=== PATIENT | female | born 1970 | race Caucasian/White ===

== ENCOUNTER 2023-04-13 11:35 | Emergency (ER) | payer MEDICAID, SELFPAY ==
[2023-04-13] VITALS (7 sets, daily range): BP systolic 119–132; BP diastolic 60–79; PULSE 57–74; RESP 15–22; TEMP 36.6–37.1; O2SAT 97–99; BMI 39.1
--- NOTE | ~2023-04-13 | CT_ITS ---
EXAMINATION: CT ANGIOGRAM OF THE CHEST WITH CONTRAST (CT PULMONARY ANGIOGRAM FOR PE) CLINICAL INFORMATION: Reason for Exam Left-sided pleuritic pain, rule out PE versus pneumonia COMPARISON: Chest radiograph from 04/13/2023 TECHNIQUE: Prior to contrast administration, noncontrast localization images were obtained. Subsequently, multidetector volumetric imaging was performed from the thoracic inlet to below the diaphragms following the administration of 65 mL Omnipaque 350 intravenous contrast. No contrast reaction reported. Sagittal, coronal, and MIP oblique sagittal reformatted images were obtained on the CT workstation, uploaded to PACS, and reviewed. This CT examination was performed using dose optimization techniques as appropriate, variously including the following: *Automated exposure control *Adjustment of mA and/or kV according to patient size (this includes techniques or standardized protocols for targeted exams where dose is matched to indication/reason for exam; i.e. extremities or head) *Use of iterative reconstruction technique DLP: Total exam dose-length product 309 mGy-cm FINDINGS: LUNGS AND PLEURA: Lungs have mosaic attenuation. Bronchial gongora are diffusely thickened. Mild pulmonary emphysematous changes. No evidence of interstitial disease, consolidation, mass or pleural effusion. No pneumothorax. QUALITY OF STUDY/CONTRAST BOLUS: Satisfactory. PULMONARY ARTERIES: The pulmonary arteries are normal in size. No embolic filling defects within the main, lobar or segmental vessels. OTHER CARDIOVASCULAR: The heart size is normal. No pericardial effusion. Thoracic aorta has normal caliber and contour. MEDIASTINUM/LOWER NECK: No mediastinal mass. The thyroid gland and esophagus are unremarkable. LYMPHATICS: No pathologic sized axillary, hilar or mediastinal lymph nodes. UPPER ABDOMEN: A small amount of contrast material is present within the proximal stomach. No acute findings within the visualized portion of the upper abdomen. The patient has a large body habitus. OSSEOUS STRUCTURES: No acute or suspicious osseous abnormality. Mild spondylosis of the thoracic spine. CT/CT angio chest PE protocol IMPRESSION: * No evidence of pulmonary embolism. * Lungs have mosaic attenuation and bronchial gongora are thickened. This could be a manifestation of asthma or bronchitis. * No evidence of pneumonia.
--- NOTE | ~2023-04-13 | XR_ITS ---
EXAMINATION: XR CHEST CLINICAL INFORMATION: Woke up Tuesday with shortness of breath, cough, and extreme tiredness. COMPARISON: None available. TECHNIQUE: 2 views of the chest were obtained. FINDINGS: Moderate degenerative changes in the thoracic spine. No gross pleural effusion. There is no gross pneumothorax. Heart size is normal. No focal consolidation to suggest pneumonia. Mild prominence of the left hilum. Moderate bilateral perihilar peribronchial thickening. XR/XR chest 2V IMPRESSION: 1. Moderate bilateral perihilar peribronchial thickening. No focal consolidation to suggest pneumonia. 2. Mild prominence of the left hilum. 2. CT scan of the chest without intravenous contrast recommended for further evaluation. This study was presented today April 13, 2023 at 12:50 PM for interpretation. Stat results provided at this time as requested by referring provider.
--- NOTE | 2023-04-13 12:04 | ED.GENADULT ---
HPI - General Adult General Chief complaint: Upper Respiratory Symptoms Stated complaint: Back pain, congestion, vomiting Time Seen by Provider: 04/13/23 15:44 Source: patient Mode of arrival: ambulatory Limitations: no limitations History of Present Illness HPI narrative: 52-year-old female with no significant past medical history presents emergency department for evaluation of sudden onset of left posterior pleuritic pain which started on 04/11/2022 2 days prior to evaluation. 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 She states she fell back asleep but then when she woke up to go to work she felt ill. She states she had intermittent fevers on and off for 2 days. She had nasal congestion. She has had a cough which is productive of black, dark phlegm with no blood in the phlegm. She states that she initially had nausea, vomiting and diarrhea for 2 days but this resolved. She states she feels extremely fatigued, she has dyspnea on exertion and shortness of breath. She took a home COVID test which was negative. She denied any pain or swelling in her legs. She has had no recent travel. She has not on control pills or estrogen supplements. 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 She denies tobacco, alcohol use. Related Data Previous Rx's Medication Instructions Recorded albuterol sulfate 90 mcg/actuation 2 puff inhalation Q4-6H PRN 04/13/23 aerosol inhaler (ProAir HFA) shortness of breath or wheezing #6.7 grams doxycycline hyclate 100 mg tablet 100 mg PO Q12H 7 days #14 tabs 04/13/23 prednisone 20 mg tablet 60 mg (3 x 20 mg) PO DAILY 5 days 04/13/23 #15 tabs Allergies Allergy/AdvReac Type Severity Reaction Status Date / Time Latex, Natural Rubber Allergy Intermediate Hives Verified 04/13/23 12:04 Review of Systems Review of Systems: Yes all other systems are reviewed and are negative [facility] Social History Social History Alcohol intake: former Smoked in Last 30 Days: No Use of substances other than those prescribed or required for medical reasons: Yes Substance Use Type: Marijuana Advance Directives: No Physical Exam ED Vital Signs: Vital Signs - 24 hr 04/13/23 12:04 04/13/23 12:21 04/13/23 14:02 Temperature 97.9 F 97.8 F Pulse Rate 57 61 74 Respiratory Rate 18 22 H 18 Blood Pressure 127/79 132/74 Pulse Oximetry 97 97 Oxygen Delivery Method Room Air Room Air 04/13/23 16:28 04/13/23 18:17 04/13/23 18:44 Temperature 98.2 F 98.7 F 98.2 F Pulse Rate 60 67 63 Respiratory Rate 15 16 16 Blood Pressure 127/67 125/60 119/65 Pulse Oximetry 97 97 97 Oxygen Delivery Method Room Air Room Air Room Air BMI result Body Mass Index 39.1 Vital signs were normal Exam: General: Awake, alert in no distress Head: Normocephalic, atraumatic EENT: PERRL, Lids normal, sclera normal, conjunctiva normal, nose normal , ears normal, throat without erythema or exudates Neck: Supple, no adenopathy, no trachea midline or C-spine tenderness Lung: breath sounds symmetric, no wheezing, rales or rhonchi Chest: symmetric movement, nontender Heart: regular rate and rhythm, normal S1, S2 no murmurs or rubs Abdomen: soft, non-tender, nondistended, normal bowel sounds Back: no vertebral tenderness, no CVAT Extremities: no deformities, moves all extremities symmetrically, lower extremities appear to be symmetric with no edema or erythema Neuro: Awake, alert, oriented, normal speech, moves all extremities symmetrically Psych: Pleasant, cooperative Course Course Course Narrative: RME: 52 year-old F w/ PMHx presenting to the ED c/o back pain 1 week ago which is now resolved, now with ear pain, congestion, cough, SOB and fatigue +exp wheeze, coarse cough Viral testing, CXR ordered Full HPI, ROS and PE to be performed by primary ED provider. Medications Administered Discontinued Medications Generic Name Dose Route Start Last Admin Trade Name Freq PRN Reason Stop Dose Admin Albuterol Sulfate 2.5 mg/ 0 mg 04/13/23 12:17 04/13/23 12:20 Albuterol/Ipratropium 3 ml INHALE 04/13/23 12:18 1 dose ONCE ONE Administration Doxycycline Monohydrate 100 mg 04/13/23 19:14 04/13/23 19:42 Doxycycline Monohydrate 100 Mg Capsule PO 04/13/23 19:15 100 mg ONCE ONE Administration Sodium Chloride 1,000 mls @ 999 mls/hr 04/13/23 16:03 04/13/23 17:50 Ns IV 04/13/23 17:03 Infused .Q1H1M STA Infusion Iohexol 100 ml 04/13/23 17:20 04/13/23 17:21 Iohexol 350 Mg/Ml 100 Ml Infus..Btl IV 04/13/23 17:21 65 ml ONCE ONE Administration Ketorolac Tromethamine 15 mg 04/13/23 16:03 04/13/23 16:30 Ketorolac Tromethamine 15 Mg/Ml Vial IVPUSH 04/13/23 16:04 15 mg ONCE STA Administration Prednisone 40 mg 04/13/23 19:14 04/13/23 19:41 Prednisone 20 Mg Tablet PO 04/13/23 19:15 40 mg ONCE ONE Administration Procedures Ear Wax Removal Both Ears: Cerumenolytic Used: other (50% water with 50% hydrogen peroxide) Results: Re-examined: cerumen removed completely TM Examination: TM(s) intact, normal appearance Ear Canal Exam: atraumatic Patient Tolerated Procedure: well Complications: no problems Technique: ear canal irrigated Medical Decision Making Medical Decision Making MDM Narrative: 52-year-old female with no past medical history who presents emergency department for evaluation of sudden onset of left-sided pleuritic chest pain 2 days prior with cough which is productive of thick black sputum. The patient had fever, nausea, vomiting and diarrhea for 2 days. She currently complains of productive cough, nasal congestion, left-sided pleuritic chest pain which is improved, fatigue, myalgias and arthralgias. Vital signs were normal. Physical examination was unremarkable, patient did have wheezing at triage and did receive a albuterol nebulizer mixed with DuoNeb x1 and had no wheezing at the time of my evaluation. Following evaluation was ordered: CBC, CMP, D-dimer, PTT, troponin, CT pulmonary angiogram PE protocol, chest x-ray, IV insertion, front desk monitor, pulse ox monitor Patient was treated with the following: Normal saline x1 L and Toradol 15 mg IV 18:49 My interpretation patient's laboratory evaluation as follows: CBC was normal with a WBC of 7400 H&H of 14 and 40.2. D-dimer was normal. CMP was normal. Troponin was below detectable limits. COVID-19 influenza were negative Chest x-ray was concerning for possible left sided infiltrate. CT pulmonary angiogram PE protocol revealed no PE which is reassuring, patient may have diffuse bronchial illness Patient treated with doxycycline 100 mg b.i.d. x7 days, given her 1st dose here in the emergency department. Prednisone 60 mg daily x5 days, given her 1st dose here in the emergency department. She was prescribed an albuterol inhaler 2 puffs every 4 hours as needed for shortness of breath. She was given printed and verbal instructions and a work note. Differential Diagnosis Differential Diagnoses: The differential diagnosis associated with the presentation includes Differential diagnosis includes was not limited to pneumonia, bronchitis, viral syndrome, COVID-19, influenza, RSV, pulmonary embolism, pneumothorax Admission/Observation Consideration of admission/observation: Escalation of care including admission/observation considered Lab Data MDM Lab Attestation statement: I reviewed the patient's lab results. 04/13/23 16:18 04/13/23 16:18 Labs: Lab Results 04/13/23 04/13/23 Range/Units 12:12 16:18 WBC 7.4 (4.8-10.8) X10*3/uL RBC 4.30 (4.20-5.50) X10*6/uL Hgb 14.0 (12.0-16.0) g/dl Hct 40.2 (37.0-47.0) % MCV 93.5 (80.0-98.0) fL MCH 32.6 (27.0-33.0) pg MCHC 34.8 (31.0-35.0) g/dl RDW 13.0 (11.0-16.0) % Plt Count 223 (160-400) X10*3/uL MPV 9.8 (9.4-12.3) fL Immature Gran % (Auto) 0.5 H (0.0-0.4) % Neut % (Auto) 62.6 (45-73) % Lymph % (Auto) 28.2 (20-40) % [place] % (Auto) 7.6 (2-11) % Eos % (Auto) 0.7 (0-4) % Baso % (Auto) 0.4 (0-2) % Lymph # (Auto) 2.1 (1.2-4.9) X10*3/uL [place] # (Auto) 0.6 (0.1-1.2) X10*3/uL Eos # (Auto) 0.1 (0.0-0.4) X10*3/uL Baso # (Auto) 0.0 (0.0-0.2) X10*3/uL Abs Immat Gran (auto) 0.04 H (0.00-0.03) X10*3/uL Absolute Neuts (auto) 4.6 (2.0-8.3) x10*3/uL Absolute Nucleated RBC 0.000 (0.0-0.012) X10*3/uL Nucleated RBC % (auto) 0.0 (0.0-0.2) /100WBC APTT 25.0 L (26.0-36.4) SEC D-Dimer High Sensitivty < 150 NG/ML Sodium 141 (135-145) mmol/L Potassium 3.4 (3.3-5.1) mmol/L Chloride 106 (96-108) mmol/L Carbon Dioxide 28 (22-29) mmol/L Anion Gap 10 L (12-20) BUN 10 (9-16) mg/dL Creatinine 0.65 (0.5-1.4) mg/dL Estim Creat Clear Calc 112.9 Estimated GFR > 60 Random Glucose 102 (60-115) mg/dL Calcium 9.0 (8.4-10.2) mg/dL Total Bilirubin 0.4 (0.0-1.0) mg/dL AST 11 (5-31) U/L ALT 12 (0-31) U/L Alkaline Phosphatase 69 (39-117) U/L Troponin I High Sens < 2.7 (<3.5-17.0) ng/L Total Protein 7.0 (6.5-8.0) g/dL Albumin 3.9 (3.5-5.0) g/dL COVID-19 (JAIR) Negative (Negative) COVID-19 Clin Com See Note Influenza Type A (TAO) Negative (Negative) Influenza Type B (TAO) Negative (Negative) Influenza A & B Note See Note Independent Interpretation I performed an independent interpretation of an: Plain X-Ray Interpretation: My independent interpretation with the patient's one-view chest x-ray is as follows: Left perihilar infiltrate Radiology Impression Discussion of test interpretation with radiology: I have reviewed the radiologist's reading. Radiologist Impression: XR chest 2V IMPRESSION: 1. Moderate bilateral perihilar peribronchial thickening. No focal consolidation to suggest pneumonia. 2. Mild prominence of the left hilum. 2. CT scan of the chest without intravenous contrast recommended for further evaluation. This study was presented today April 13, 2023 at 12:50 PM for interpretation. Stat results provided at this time as requested by referring provider. Dictated By: Priya Pleitez MD CT angio chest PE protocol IMPRESSION: * No evidence of pulmonary embolism. * Lungs have mosaic attenuation and bronchial gongora are thickened. This could be a manifestation of asthma or bronchitis. * No evidence of pneumonia. Dictated By: Dennis Baptiste MD Independent Historian Clinical information obtained from an independent historian. History obtained from or confirmed by: Other (Friend) Prescription Management I considered prescription management with: Antibiotic Discharge Plan Discharge Clinical Impression: Chest pain, pleuritic, Bilateral impacted cerumen Acute bronchitis Qualifiers: Bronchitis organism: other organism Qualified Code(s): J20.8 - Acute bronchitis due to other specified organisms Patient Disposition: Home, Self-Care Instructions: Acute Bronchitis (ED) Additional Instructions: Your blood work was unremarkable Your COVID-19 and influenza were negative. Your chest x-ray was concerning for possible left-sided pneumonia however the CT scan of your chest with IV contrast revealed no pneumonia but you do have significant inflammation of your breathing tubes, this is consistent with bronchitis. Take doxycycline 100 mg, 1 pill every 12 hours for 7 days Take prednisone 20 mg pills, 3 pills once a day for 5 days. While you ?are taking prednisone, do not take any NSAIDs (Motrin, Advil, ibuprofen, Aleve, naproxen). Take Tylenol (acetaminophen) 500 mg pills, 2 pills every 6 hours as needed for pain or fever. Follow-up with your doctor in 2 days. Please return to the emergency department if your symptoms get worse or if you develop any symptoms that are concerning to you. Please see the work note. Prescriptions: New prednisone 20 mg tablet 60 mg PO DAILY 5 Days Qty: 15 0RF albuterol sulfate [ProAir HFA] 90 mcg/actuation HFA aerosol inhaler 2 puff inhalation Q4-6H PRN (Reason: shortness of breath or wheezing) Qty: 6.7 0RF doxycycline hyclate 100 mg tablet 100 mg PO Q12H 7 Days Qty: 14 0RF Stand Alone Forms: Work/School Release
[2023-04-13] MEDS: Albuterol Sulfate 2.5 MG, Albuterol/Iprat 2.5/0.5MG 3 ML 3 ML INHALE (12:20)
[2023-04-13 12:36] LABS: COVID-19 Test Negative (Negative); IDNOW Serial# 58CA691E
[2023-04-13 12:37] LABS: IDNOW Serial# 6674DD1D; Influenza A Negative (Negative); Influenza B2 Negative (Negative)
--- NOTE | 2023-04-13 16:04 | ECG_ITS ---
Test Reason : UPPER RESP Blood Pressure : / mmHG Vent. Rate : 059 BPM Atrial Rate : 059 BPM P-R Int : 170 ms QRS Dur : 084 ms QT Int : 444 ms P-R-T Axes : 019 -19 -17 degrees QTc Int : 439 ms Sinus bradycardia Nonspecific T wave abnormality Abnormal ECG No previous ECGs available Referred By: Devendra Benito Electronically Signed By:Sabino Tamez
[2023-04-13 16:22] LABS: MANUAL DIFF FLAG NO
[2023-04-13] MEDS: 0.9 % Sodium Chloride 1,000 ML 999 ML IV (16:22)
[2023-04-13 16:30] LABS: Basophils Percent Auto 0.4 % (0-2); Eosinophils Absolute Auto 0.1 X10*3/uL (0.0-0.4); Eosinophils Percent Auto 0.7 % (0-4); Hematocrit 40.2 % (37.0-47.0); Imm Gran Abs Auto 0.04 X10*3/uL (0.00-0.03); Imm Gran Pct Auto 0.5 % (0.0-0.4); Lymphocytes Absolute Auto 2.1 X10*3/uL (1.2-4.9); Lymphocytes Percent Auto 28.2 % (20-40); Mean Corpuscular HGB Conc 34.8 g/dl (31.0-35.0); Mean Corpuscular Hemoglobin 32.6 pg (27.0-33.0); Mean Corpuscular Volume 93.5 fL (80.0-98.0); Mean Platelet Volume 9.8 fL (9.4-12.3); Monocytes Absolute Auto 0.6 X10*3/uL (0.1-1.2); Monocytes Percent Auto 7.6 % (2-11); Neutrophils Absolute Auto 4.6 x10*3/uL (2.0-8.3); Neutrophils Percent Auto 62.6 % (45-73); Platelet Count 223 X10*3/uL (160-400); White Blood Count 7.4 X10*3/uL (4.8-10.8)
[2023-04-13] MEDS: Ketorolac Tromethamine 15 MG/ML VIAL IVPUSH (16:30)
[2023-04-13 16:43] LABS: Alanine Aminotransferase 12 U/L (0-31); Albumin Level 3.9 g/dL (3.5-5.0); Alkaline Phosphatase 69 U/L (39-117); Anion Gap 10 (12-20); Aspartate Amino Transferase 11 U/L (5-31); Bilirubin Total 0.4 mg/dL (0.0-1.0); Blood Urea Nitrogen 10 mg/dL (9-16); Carbon Dioxide 28 mmol/L (22-29); Chloride 106 mmol/L (96-108); Creatinine Clr Calc Pharmacy 112.9; Estimated Glomerular Filt Rate > 60; Glucose Random 102 mg/dL (60-115); Potassium 3.4 mmol/L (3.3-5.1); Sodium 141 mmol/L (135-145)
[2023-04-13 16:51] LABS: Troponin-I High Sensitivity < 2.7 ng/L (<3.5-17.0)
[2023-04-13 17:21] LABS: D Dimer High Sensitivity < 150 NG/ML
[2023-04-13] MEDS: iohexoL 350 MG/ML 100 ML INFUS..BTL IV (17:21)
--- NOTE | 2023-04-13 17:53 | PC.NURSE ---
Alert and oriented, reports not feeling well since tuesday. Labs drawn, medicated per may, reports feeling better. Son at bedside
[2023-04-13] MEDS: predniSONE 20 MG TABLET 40 MG PO (19:41)
[2023-04-13] MEDS: Doxycycline Monohydrate 100 MG CAPSULE PO (19:42)
--- NOTE | 2023-04-13 19:45 | PC.NURSE ---
Assumed care of pt at 19:00. Resting in bed, VS stable. Plan of care ongoing.
--- NOTE | 2023-04-13 20:43 | PC.NURSE ---
Both ears flushed per MD verbal order with 50/50 hydrogen peroxide and warm H2O. Round 2cm size brown ball of wax extracted from both ears.
== END 2023-04-13 20:54 | disposition home or self-care (01) ==
PROVIDERS: Physician Assistant; Emergency Provider Emergency Medicine Emergency Medical Services
DX: R07.89 Other chest pain (principal); J20.8 Acute bronchitis due to other specified organisms; H61.23 Impacted cerumen, bilateral; Z11.52 Encounter for screening for COVID-19
CPT/HCPCS: 36415; 69209; 71046; 71275; 80053; 84484; 85025; 85379; 85730; 87502; 87635; 93005; 94640; 96361; 96374; 99284; 99285; J1885; Q9967

== ENCOUNTER → 2023-04-13 16:04 | Outpatient (BNV) | payer MEDICAID, SELFPAY | PROVIDERS: Emergency Provider Emergency Medicine Emergency Medical Services; Visit Provider Internal Medicine Cardiovascular Disease | DX: R00.1 Bradycardia, unspecified (principal); R94.31 Abnormal electrocardiogram [ECG] [EKG] | CPT/HCPCS: 93010 ==

== ENCOUNTER 2023-04-20 18:25 | Emergency (ER) | payer MEDICAID, SELFPAY ==
--- NOTE | ~2023-04-20 | XR_ITS ---
EXAMINATION: XR CHEST CLINICAL INFORMATION: Bronchitis COMPARISON: None available. TECHNIQUE: Frontal view of the chest was obtained. FINDINGS: No significant abnormality is noted involving the heart, lungs, mediastinum, bony thorax or soft tissues. XR/XR chest 1V IMPRESSION: Unremarkable chest examination.
[2023-04-20 19:26] VITALS: BP 103/62; PULSE 67; RESP 18; TEMP 36.9; O2SAT 95; BMI 37.7
--- NOTE | 2023-04-20 19:37 | ED_ITS ---
HPI - General Adult General Chief complaint: General Medical Stated complaint: bronchitis, abd pain Time Seen by Provider: 04/21/23 01:30 Source: patient Mode of arrival: ambulatory History of Present Illness HPI narrative: 52-year-old female, prior smoker, presents with persistent cough and feeling unwell since last week, patient reports she has been taking her prednisone/albuterol and antibiotics as prescribed. Patient also reports right lower abdominal discomfort. Related Data Previous Rx's Medication Instructions Recorded albuterol sulfate 90 mcg/actuation 2 puff inhalation Q4-6H PRN 04/13/23 aerosol inhaler (ProAir HFA) shortness of breath or wheezing #6.7 grams doxycycline hyclate 100 mg tablet 100 mg PO Q12H 7 days #14 tabs 04/13/23 prednisone 20 mg tablet 60 mg (3 x 20 mg) PO DAILY 5 days 04/13/23 #15 tabs Allergies Allergy/AdvReac Type Severity Reaction Status Date / Time Latex, Natural Rubber Allergy Intermediate Hives Verified 04/20/23 19:26 Review of Systems 2 Review of Systems: Pertinent positives and negatives as stated in HPI [facility] Past Medical History Source: nursing notes reviewed Social History Social History Alcohol intake: former Smoked in Last 30 Days: No Use of substances other than those prescribed or required for medical reasons: No Substance Use Type: Marijuana Advance Directives: No Advance Directives Information Provided: Yes Patient : No Physical Exam ED Vital Signs: Vital Signs - 24 hr 04/20/23 19:26 04/21/23 00:26 04/21/23 01:47 Temperature 98.5 F 97.7 F 98.2 F Pulse Rate 67 64 60 Respiratory Rate 18 18 18 Blood Pressure 103/62 127/98 H 106/59 L Pulse Oximetry 95 95 93 Oxygen Delivery Method Room Air Room Air Room Air 04/21/23 02:04 Temperature 98.1 F Pulse Rate 61 Respiratory Rate 14 Blood Pressure 116/65 Pulse Oximetry 95 Oxygen Delivery Method Room Air BMI result Body Mass Index 37.7 VITAL SIGNS: Reviewed. GENERAL: Well developed, well nourished, in no acute distress. HEAD: Normocephalic/atraumatic EYES: PERRLA, EOMI EARS: Ext canals without abnormality NOSE: Nares patent bilateral OROPHARYNX: no oral lesions noted, posterior pharynx clear NECK: Supple, no adenopathy LUNGS: Good inspiratory effort, coarse rhonchi that clear with cough, no tachypnea. SpO2<95> CARDIOVASCULAR: Regular rate and rhythm without noted murmurs ABDOMEN: Soft, non-tender, non-distended with bowel sounds. MUSCULOSKELETAL: No tenderness, deformities, or effusions noted on gross inspection. EXTREMITIES: No cyanosis, clubbing or edema. SKIN: Inspection of the skin reveals no rashes NEUROLOGIC: Alert and oriented x 4. Strength and sensation to light touch were grossly intact x 4. Course Course Course Narrative: RME: 52 yold female presents to the ED for URI sympomts for one week and now has lower abdominal pain. patient denies any chest pain or SOB. Medications Administered Discontinued Medications Generic Name Dose Route Start Last Admin Trade Name Freq PRN Reason Stop Dose Admin Acetaminophen 975 mg 04/21/23 01:35 04/21/23 02:06 Acetaminophen 325 Mg Tablet PO 04/21/23 01:36 975 mg ONCE ONE Administration Ibuprofen 400 mg 04/21/23 01:35 04/21/23 02:06 Ibuprofen 400 Mg Tablet PO 04/21/23 01:36 400 mg ONCE ONE Administration Medical Decision Making Medical Decision Making MDM Narrative: 52-year-old female with history and clinical presentation, DDX: UTI, musculoskeletal pain, viral syndrome, COVID-19 versus influenza, low clinical suspicion for intra-abdominal infection or bacterial pneumonia. I reviewed all investigations and hematologic indices are grossly within normal limits without any noted derangements. Chemistry indices without demonstrated SAVAGE/electrolyte or liver enzyme derangements. Lipase is within normal limits. Urine is negative and urinalysis does demonstrate blood, viral testing is positive for influenza A. Suspect that patient is out of the window for initiating Tamiflu, this was discussed with the patient at bedside. Patient was also given combination analgesics. My interpretation is that patient has a viral syndrome with cough that is likely contributing to musculoskeletal pain in the abdomen is noted be influenza A positive. Differential Diagnosis Differential Diagnoses: The differential diagnosis associated with the presentation includes Please see the discussion above Admission/Observation Consideration of admission/observation: Escalation of care including admission/observation considered Please see the discussion above Lab Data MDM Lab Attestation statement: I reviewed the patient's lab results. Please see the discussion above 04/20/23 19:50 04/20/23 19:50 Labs: Lab Results 04/20/23 Range/Units 19:50 WBC 5.4 (4.8-10.8) X10*3/uL RBC 4.46 (4.20-5.50) X10*6/uL Hgb 14.5 (12.0-16.0) g/dl Hct 41.8 (37.0-47.0) % MCV 93.7 (80.0-98.0) fL MCH 32.5 (27.0-33.0) pg MCHC 34.7 (31.0-35.0) g/dl RDW 12.9 (11.0-16.0) % Plt Count 206 (160-400) X10*3/uL MPV 10.0 (9.4-12.3) fL Immature Gran % (Auto) 0.4 (0.0-0.4) % Neut % (Auto) 52.4 (45-73) % Lymph % (Auto) 33.1 (20-40) % Holmes % (Auto) 12.2 H (2-11) % Eos % (Auto) 1.3 (0-4) % Baso % (Auto) 0.6 (0-2) % Lymph # (Auto) 1.8 (1.2-4.9) X10*3/uL Holmes # (Auto) 0.7 (0.1-1.2) X10*3/uL Eos # (Auto) 0.1 (0.0-0.4) X10*3/uL Baso # (Auto) 0.0 (0.0-0.2) X10*3/uL Abs Immat Gran (auto) 0.02 (0.00-0.03) X10*3/uL Absolute Neuts (auto) 2.9 (2.0-8.3) x10*3/uL Absolute Nucleated RBC 0.000 (0.0-0.012) X10*3/uL Nucleated RBC % (auto) 0.0 (0.0-0.2) /100WBC Sodium 140 (135-145) mmol/L Potassium 3.7 (3.3-5.1) mmol/L Chloride 107 (96-108) mmol/L Carbon Dioxide 24 (22-29) mmol/L Anion Gap 13 (12-20) BUN 15 (9-16) mg/dL Creatinine 0.74 (0.5-1.4) mg/dL Estim Creat Clear Calc 93.6 Estimated GFR > 60 Random Glucose 109 (60-115) mg/dL Calcium 8.8 (8.4-10.2) mg/dL Total Bilirubin 0.2 (0.0-1.0) mg/dL AST 15 (5-31) U/L ALT 14 (0-31) U/L Alkaline Phosphatase 66 (39-117) U/L Total Protein 7.0 (6.5-8.0) g/dL Albumin 3.8 (3.5-5.0) g/dL Lipase 25 (8-78) U/L Urine Color Dark Yellow Urine Appearance Clear Urine pH 5.5 (5.0-9.0) Ur Specific Molina >= 1.030 H (1.005-1.025) Urine Protein 30 (1+) H (Neg-Trace) mg/dL Urine Glucose (UA) Negative (Negative) mg/dL Urine Ketones Trace (Negative) mg/dL Urine Blood Small (1+) H (Negative) Urine Nitrite Negative (Negative) Ur Leukocyte Esterase Negative (Negative) Urine RBC 6-10 H (0-2) /HPF Urine WBC 0-5 (0-5) /HPF Ur Squamous Epith Cells 6-10 (0-2) /HPF Calcium Oxalate Crystal Present Urine Bacteria None Seen (None Seen) Hyaline Casts 11-20 (0-2) /LPF Urine Test NEGATIVE (NEGATIVE) COVID-19 (JAIR) Negative (Negative) COVID-19 Clin Com See Note Influenza Type A (TAO) Positive A (Negative) Influenza Type B (TAO) Negative (Negative) Influenza A & B Note See Note Radiology Impression Discussion of test interpretation with radiology: I have reviewed the radiologist's reading. Radiologist Impression: Please see the discussion above External Record Review External record reviewed: Outpatient record, Prior outpatient labs and Prior outpatient radiology Critical Care Time Critical Care Time Critical Care Time: Yes Total Critical Care Time: 30 Attestation: I personally attest to this time spent taking care of the patient. Discharge Plan Discharge Clinical Impression: Viral syndrome, Influenza A Patient Disposition: Home, Self-Care Instructions: Influenza (ED), Viral Syndrome (ED) Additional Instructions: 1. Resume all home medications as prescribed. 2. Recommend [id number]-iupbruk Tylenol/ibuprofen as needed for body aches, headaches, temperatures greater than 100.4. Continue to drink plenty of water this will help mobilize the secretions. 3. Recommend cool mist bedside humidifier, plenty of rest. Return to the ER for any worsening symptoms. Prescriptions: No Action prednisone 20 mg tablet 60 mg PO DAILY 5 Days Qty: 15 0RF albuterol sulfate [ProAir HFA] 90 mcg/actuation HFA aerosol inhaler 2 puff inhalation Q4-6H PRN (Reason: shortness of breath or wheezing) Qty: 6.7 0RF doxycycline hyclate 100 mg tablet 100 mg PO Q12H 7 Days Qty: 14 0RF Stand Alone Forms: Work/School Release Interventions: ED Discharge Assessment Last Done: 04/21/23 02:09 Discharge Date/Time: 04/21/23 02:10
[2023-04-20 19:56] LABS: MANUAL DIFF FLAG NO
[2023-04-20 20:00] LABS: Basophils Percent Auto 0.6 % (0-2); Eosinophils Absolute Auto 0.1 X10*3/uL (0.0-0.4); Eosinophils Percent Auto 1.3 % (0-4); Hematocrit 41.8 % (37.0-47.0); Hemoglobin 14.5 g/dl (12.0-16.0); Imm Gran Abs Auto 0.02 X10*3/uL (0.00-0.03); Imm Gran Pct Auto 0.4 % (0.0-0.4); Lymphocytes Absolute Auto 1.8 X10*3/uL (1.2-4.9); Lymphocytes Percent Auto 33.1 % (20-40); Mean Corpuscular HGB Conc 34.7 g/dl (31.0-35.0); Mean Corpuscular Hemoglobin 32.5 pg (27.0-33.0); Mean Corpuscular Volume 93.7 fL (80.0-98.0); Monocytes Absolute Auto 0.7 X10*3/uL (0.1-1.2); Monocytes Percent Auto 12.2 % (2-11); Neutrophils Absolute Auto 2.9 x10*3/uL (2.0-8.3); Neutrophils Percent Auto 52.4 % (45-73); Platelet Count 206 X10*3/uL (160-400); Red Blood Count 4.46 X10*6/uL (4.20-5.50); Red Cell Distribution Width 12.9 % (11.0-16.0); White Blood Count 5.4 X10*3/uL (4.8-10.8)
[2023-04-20 20:01] LABS: Appearance Urine Clear; Color Urine Dark Yellow; Glucose Urine UA Negative (Negative); Leukocyte Esterase Urine Negative (Negative); Nitrite Urine Negative (Negative); PH 5.5 (5.0-9.0); Specific Gravity - Urine >= 1.030 (1.005-1.025); UMIC TRIGGER UACC YES; Urine Blood Small (1+) (Negative); Urine Ketones Trace mg/dL (Negative); Urine Protein 30 (1+) mg/dL (Neg-Trace)
[2023-04-20 20:03] LABS: UPreg QC Valid YES; Urine Pregnancy NEGATIVE (NEGATIVE)
[2023-04-20 20:11] LABS: COVID-19 Test Negative (Negative); IDNOW Serial# 08D9AD1C
[2023-04-20 20:12] LABS: Alanine Aminotransferase 14 U/L (0-31); Albumin Level 3.8 g/dL (3.5-5.0); Alkaline Phosphatase 66 U/L (39-117); Anion Gap 13 (12-20); Aspartate Amino Transferase 15 U/L (5-31); Bilirubin Total 0.2 mg/dL (0.0-1.0); Blood Urea Nitrogen 15 mg/dL (9-16); Calcium 8.8 mg/dL (8.4-10.2); Carbon Dioxide 24 mmol/L (22-29); Chloride 107 mmol/L (96-108); Creatinine Clr Calc Pharmacy 93.6; Estimated Glomerular Filt Rate > 60; Glucose Random 109 mg/dL (60-115); Lipase 25 U/L (8-78); Potassium 3.7 mmol/L (3.3-5.1); Sodium 140 mmol/L (135-145)
[2023-04-20 20:13] LABS: IDNOW Serial# 152EDE1D; Influenza A Positive (Negative); Influenza B2 Negative (Negative)
[2023-04-20 21:09] LABS: Bacteria Urine None Seen (None Seen); Calcium Oxalate Crystals Urine Present; WBC Urine 0-5 /HPF (0-5)
[2023-04-21 00:26] VITALS: BP 127/98; PULSE 64; RESP 18; TEMP 36.5; O2SAT 95
--- OUTSIDE RECORDS SUMMARY | 2023-04-21 01:43 | XMS_ITS | Continuity of Care Document ---
Author Name Unknown Organization [facility] Address [address] [place] [id number] Care Team Providers Care Mechanical Maintenance Supervisor Name Role Phone Not on Staff, PCP Primary Care Physician Unavail able [place] [facility] [place] 11/25/[address] [phone]- Encounter Diagnosis Syncope(Final) - 11/25/21 Syncope(Final) - 11/25/21 Discharge Disposition: A-D/C Home Attending Physician: Juan Luis Armijo MD Admitting Physician: Leela Hopkins MD Referring Physician: Not on Staff, Referring MD Allergies, Adverse Reactions, Alerts Substance Reaction Severity Status Latex Active Medications No Known Medications Results Radiology Reports * Exam Date Time Procedure Performing Provider Status 11/24/21 3:52 PM Chest Portable Laverne Lujan (Verif ied) Notes: (Chest Portable) Reason For Exam: Chest Pain;Other: RESULT: Chest Portable Examination: Portable chest performed on 11/24/2021. History: Chest pain. Findings: A frontal view of the chest is submitted without comparison. The cardiac and mediastinal silhouettes are within normal limits. The lungs are clear. The osseous and soft tissue structures are unremarkable. IMPRESSION: There is no acute cardiopulmonary disease. WSN: [id number] Ordering Physician: Kenia Nolasco Dictated By: Wilma Davis MD Dictated Date/Time: 11/24/21 3:55 pm Reviewed By: Wilma Davis MD Signed By: Wilma Davis MD Signed Date/Time: 11/24/21 3:55 pm Transcribed By: LILY Transcribed Date/Time: 11/24/21 3:55 pm Vital Signs Most recent to oldest [Reference Range]: 1 2 3 4 Oxygen Saturation [94-100 %] 98 % (11/25/21 7:43 AM) 98 % (11/25/21 4:00 AM) 99 % (11/25/21 12:00 AM) 98 % (11/25/21 12:00 AM) Pulse Rate [55-90 bpm] 56 bpm (11/25/21 7:43 AM) 49 bpm *L* (11/25/21 4:00 AM) 52 bpm *L* (11/25/21 12:00 AM) 51 bpm *L* (11/25/21 12:00 AM) Blood Pressure [90-138/55-84 mm Hg] 126/84mm Hg (11/25/21 7:43 AM) 108/70mm Hg (11/25/21 4:00 AM) 136/79mm Hg (11/25/21 12:00 AM) 109/83mm Hg (11/25/21 12:00 AM) Respiratory Rate [16-30 br/min] 16 br/min (11/25/21 7:43 AM) 16 br/min (11/25/21 4:00 AM) 21 br/min (11/25/21 12:00 AM) 24 br/min (11/25/21 12:00 AM) Temperature [96.8-100.4 DegF] 97.6 DegF (11/25/21 7:43 AM) 97.7 DegF (11/25/21 4:00 AM) 97.7 DegF (11/25/21 12:00 AM) Mode of Delivery (Oxygen) Room air (11/25/21 7:43 AM) Room air (11/25/21 4:00 AM) Room air (11/25/21 12:00 AM) Room air (11/25/21 12:00 AM) Blood pressure sites Arm, left (11/25/21 7:43 AM) Arm, left (11/25/21 4:00 AM) Temperature Route Oral (11/25/21 7:43 AM) Oral (11/25/21 4:00 AM) Oral (11/25/21 12:00 AM) Note * [facility]ers[facility] , JL S: TRANSCRIBE Wilma Davis MD M: VERIFY Event Display: Result: Authored Date: [id number] Examination: Portable chest performed on 11/24/2021. History: Chest pain. Findings: A frontal view of the chest is submitted without comparison. The cardiac and mediastinal silhouettes are within normal limits. The lungs are clear. The osseous and soft tissue structures are unremarkable. IMPRESSION: There is no acute cardiopulmonary disease. WSN: [id number] Ordering Physician: Kenia Nolasco Dictated By: Wilma Davis MD Dictated Date/Time: 11/24/21 3:55 pm Reviewed By: Wilma Davis MD Signed By: Wilma Davis MD Signed Date/Time: 11/24/21 3:55 pm Transcribed By: LILY Transcribed Date/Time: 11/24/21 3:55 pm Care Team Personnel Name: Not on Staff, PCP
--- OUTSIDE RECORDS SUMMARY | 2023-04-21 01:43 | XMS_ITS | Continuity of Care Document ---
Author Name Unknown Organization [facility] Address [address] [place] [id number]- Care Team Providers Care Cloth Tearer Name Role Phone Alejo Haney MD Primary Care Physician [phone] Encounter [facility] [place] Date(s): 02/02/22 - 03/14/[address] [phone]- [place] Attending Physician: Alejo Haney MD Admitting Physician: Alejo Haney MD Referring Physician: Alejo Haney MD Allergies, Adverse Reactions, Alerts Substance Reaction Severity Status Latex Active Patient Care team information Care Team Personnel Name: Alejo Haney MD Position: [facility] Cardiology Member Role: PCP Address: Address: [address] [place] [address] [place] [id number] Care Team Related Persons Name: KIRSTEN RIVERA
[2023-04-21 01:47] VITALS: BP 106/59; PULSE 60; RESP 18; TEMP 36.8; O2SAT 93
[2023-04-21 02:04] VITALS: BP 116/65; PULSE 61; RESP 14; TEMP 36.7; O2SAT 95
[2023-04-21] MEDS: Ibuprofen 400 MG TABLET PO (02:06)
[2023-04-21] MEDS: Acetaminophen 325 MG TABLET 975 MG PO (02:06)
== END 2023-04-21 02:10 | disposition home or self-care (01) ==
PROVIDERS: Emergency Provider Student in an Organized Health Care Education/Training Program
DX: J10.1 Influenza due to other identified influenza virus with other respiratory manifestations (principal); B34.9 Viral infection, unspecified; R10.31 Right lower quadrant pain; Z11.52 Encounter for screening for COVID-19
CPT/HCPCS: 71045; 80053; 81001; 81003; 81025; 83690; 85025; 87502; 87635; 99283; 99284

== ENCOUNTER 2023-12-22 14:51 | Emergency (ER) | payer MEDICAID, SELFPAY ==
--- NOTE | ~2023-12-22 | US_ITS ---
EXAMINATION: US TRIPLEX LOWER EXTREMITY, LEFT CLINICAL INFORMATION: Swelling COMPARISON: None available. TECHNIQUE: Color-flow triplex imaging with spectral analysis and compression Doppler were performed on the left lower extremity. FINDINGS: Respiratory variation, normal compression and augmented flow are noted throughout the left lower extremity. The visualized common femoral vein, superficial femoral vein, profunda femoral vein, popliteal vein and midcalf peroneal and posterior tibial venous segments show no evidence of deep venous thrombosis. There is no Loaiza's cyst. US/US venous duplex LE LT IMPRESSION: No evidence of deep venous thrombosis involving the left lower extremity. Electronically signed by: Matt Howard MD 12/22/2023 04:06 PM EDT
--- NOTE | ~2023-12-22 | XR_ITS ---
EXAMINATION: XR CHEST CLINICAL INFORMATION: Cough. COMPARISON: None available. TECHNIQUE: 2 views of the chest were obtained. FINDINGS: No significant abnormality is noted involving the heart, lungs, mediastinum, bony thorax or soft tissues. XR/XR chest 2V IMPRESSION: Unremarkable chest examination. Electronically signed by: rKis Garcia MD 12/22/2023 05:17 PM EDT RP
[2023-12-22 15:32] VITALS: BP 122/72; PULSE 65; RESP 16; TEMP 36; O2SAT 99; BMI 36.3
--- NOTE | 2023-12-22 15:33 | ED_ITS ---
HPI - Extremity Problem General Chief complaint: General Medical Stated complaint: l leg [id number]-[id number] Time Seen by Provider: 12/22/23 19:58 Source: patient Mode of arrival: ambulatory Limitations: no limitations History of Present Illness ED Provider: Sumi Grullon PA-C HPI Narrative: 53 yo roula with history of seizures, recent admission to hospital [place] for seizures, electrolyte disturbances and reported pneumonia presents to the ER for evaluation of 4 days of LLE swelling and pain. reports when she was discharged she was never given abx like she was told she was going to get. she has been coughing a lot and vomiting. she reports pain, tenderness and sleeping sensation to the left lateral thigh, left popliteal area. she is worried about a blood clot. she is also worried she has pneumonia with ongoing cough. no sputum production. no chest pain or SOB. no weakness in the LLE, no redness or warmth. denies injury or trauma but with her recent seizure she isnt sure if she hit the leg on something or not. ambulating normally. Complaint: extremity pain and extremity swelling Onset (ago): day(s) (4) Pain Consistency: constant Location: left Severity scale (1-10): 5 Quality: aching Radiation: distal Relieving factors: nothing Exacerbating factors: walking and palpation Associated symptoms: denies other symptoms Related Data Previous Rx's ?Medication ?Instructions ?Recorded albuterol sulfate 90 mcg/actuation 2 puff inhalation Q4-6H PRN 04/13/23 aerosol inhaler (ProAir HFA) shortness of breath or wheezing #6.7 grams doxycycline hyclate 100 mg tablet 100 mg PO Q12H 7 days #14 tabs 04/13/23 prednisone 20 mg tablet 60 mg (3 x 20 mg) PO DAILY 5 days 04/13/23 #15 tabs Allergies Allergy/AdvReac Type Severity Reaction Status Date / Time Latex, Natural Rubber Allergy Intermediate Hives Verified 12/22/23 15:35 Review of Systems 2 Review of Systems: Yes all other systems are reviewed and are negative [facility] Social History Social History Alcohol intake: former Substance Use Type: Marijuana Advance Directives: No Advance Directives Information Provided: No Do you have a plan to hurt others: No Plan Physical Exam 2 Vital Signs: Vital Signs: Last Vital Signs Temp 97.9 F 12/22/23 20:02 Pulse 78 12/22/23 20:02 Resp 18 12/22/23 20:02 BP 125/84 12/22/23 20:02 Pulse Ox 98 12/22/23 20:02 O2 Del Method Room Air 12/22/23 20:02 BMI result Body Mass Index 36.3 Appearance: Alert. Oriented X3. No acute distress. Head: normocephalic, atraumatic. Eyes: Pupils equal, round and reactive to light. ENT: Pharynx normal. No tonsillar swelling or exudate. poor dentition Neck: Normal inspection. Neck supple. CVS: Normal heart rate and rhythm. Pulses normal. Respiratory: No respiratory distress. Breath sounds normal. Abdomen: Soft and nontender. +BS x4 Skin: Skin warm and dry. Normal skin color. Normal skin turgor. No rashes. Extremities: No lower extremity edema. No joint swelling. tenderness to the left lateral thigh, left popliteal area with a small blister. no erythema or warmth. Neuro/psych: Oriented X 3. No motor deficit. subjective sensory deficit to localized area on the left lateral thigh. CN II-XII intact. Normal speech and cognition. steady gait. Medical Decision Making Medical Decision Making [facility] Narrative: 53 yo female with history of seizures, recent admission to the hospital in [place] for pneumonia, electrolyte abnormalities and seizures presents to the ER for evaluation of left leg pain, swelling, numbness along with coughing and vomiting for the last 4 days. She is concerned she has a blood clot and pneumonia. She denies any chest pain or shortness of breath. Vital signs are stable in triage. No peripheral edema, erythema or warmth of the left lower extremity. Ultrasound of the left lower extremity was performed and was negative for blood clot. Lab workup was reassuring with normal CBC, normal electrolytes, no significant abnormality. X-ray was normal. No evidence of pneumonia At this time patient is stable for discharge home, likely musculoskeletal pain. Stable for discharge with supportive care and outpatient follow-up. Differential Diagnosis Differential Diagnoses: The differential diagnosis associated with the presentation includes DVT, musculoskeletal pain, radiculopathy, neuropathy, muscle spasm Lab Data [facility] Lab Attestation statement: I reviewed the patient's lab results. Normal CBC, no major metabolic derangements 12/22/23 15:43 12/22/23 15:43 Labs: Lab Results 12/22/23 Range/Units 15:43 WBC 5.9 (4.8-10.8) X10*3/uL RBC 4.39 (4.20-5.50) X10*6/uL Hgb 14.2 (12.0-16.0) g/dl Hct 40.0 (37.0-47.0) % MCV 91.1 (80.0-98.0) fL MCH 32.3 (27.0-33.0) pg MCHC 35.5 H (31.0-35.0) g/dl RDW 12.6 (11.0-16.0) % Plt Count 212 (160-400) X10*3/uL MPV 9.6 (9.4-12.3) fL Immature Gran % (Auto) 0.3 (0.0-0.4) % Neut % (Auto) 62.0 (45-73) % Lymph % (Auto) 27.0 (20-40) % Atlantic % (Auto) 8.3 (2-11) % Eos % (Auto) 1.9 (0-4) % Baso % (Auto) 0.5 (0-2) % Lymph # (Auto) 1.6 (1.2-4.9) X10*3/uL Atlantic # (Auto) 0.5 (0.1-1.2) X10*3/uL Eos # (Auto) 0.1 (0.0-0.4) X10*3/uL Baso # (Auto) 0.0 (0.0-0.2) X10*3/uL Abs Immat Gran (auto) 0.02 (0.00-0.03) X10*3/uL Absolute Neuts (auto) 3.7 (2.0-8.3) x10*3/uL Absolute Nucleated RBC 0.000 (0.0-0.012) X10*3/uL Nucleated RBC % (auto) 0.0 (0.0-0.2) /100WBC PT 10.6 L (10.9-12.4) SEC INR 0.9 (0.9-1.1) APTT 29.1 (26.0-36.8) SEC Sodium 140 (135-145) mmol/L Potassium 3.3 (3.3-5.1) mmol/L Chloride 106 (96-108) mmol/L Carbon Dioxide 25 (22-29) mmol/L Anion Gap 12 (12-20) BUN 13 (9-16) mg/dL Creatinine 0.67 (0.5-1.4) mg/dL Estim Creat Clear Calc 104.0 Estimated GFR > 60 Random Glucose 104 (60-115) mg/dL Calcium 9.6 D (8.4-10.2) mg/dL Magnesium 1.9 (1.6-2.6) mg/dL Total Bilirubin 0.9 (0.0-1.0) mg/dL Direct Bilirubin 0.3 (0.0-0.5) mg/dL AST 14 (5-31) U/L ALT 12 (0-31) U/L Alkaline Phosphatase 65 (39-117) U/L Total Protein 7.5 (6.5-8.0) g/dL Albumin 4.2 (3.5-5.0) g/dL Independent Interpretation I performed an independent interpretation of an: Plain X-Ray and Ultrasound Interpretation: Chest x-ray is clear with no focal infiltrate. Ultrasound is negative for DVT Radiology Impression Discussion of test interpretation with radiology: I have reviewed the radiologist's reading. Prescription Management I considered prescription management with: Pain Medication and Antibiotic Chronic Conditions Patient?s care impacted by: Other (Obesity, seizures) Social Determinants Patient?s care significantly limited by Social Determinants of Health including: Other Social Determinant of Health (No primary care doctor in [place], from [place]) Critical Care Time Critical Care Time Critical Care Time: No Discharge Plan Discharge Clinical Impression: Leg pain, left Patient Disposition: Home, Self-Care Instructions: Leg Pain (ED) Additional Instructions: You do not have a blood clot. Your chest x-ray was normal Your labs were normal Recommend following up with a primary care doctor for further evaluation and treatment Prescriptions: No Action prednisone 20 mg tablet 60 mg PO DAILY 5 Days Qty: 15 0RF albuterol sulfate [ProAir HFA] 90 mcg/actuation HFA aerosol inhaler 2 puff inhalation Q4-6H PRN (Reason: shortness of breath or wheezing) Qty: 6.7 0RF doxycycline hyclate 100 mg tablet 100 mg PO Q12H 7 Days Qty: 14 0RF Referrals: [facility] [Provider Group] [facility] [place] [facility] [place] [facility] [place] [facility] Group[place] [facility] [place] Group] (seizures) Interventions: ED Discharge Assessment Last Done: 12/22/23 20:02 Discharge Date/Time: 12/22/23 20:04 Print Language: Turkish
[2023-12-22 15:48] LABS: MANUAL DIFF FLAG NO
[2023-12-22 15:52] LABS: Basophils Percent Auto 0.5 % (0-2); Eosinophils Absolute Auto 0.1 X10*3/uL (0.0-0.4); Eosinophils Percent Auto 1.9 % (0-4); Hemoglobin 14.2 g/dl (12.0-16.0); Imm Gran Abs Auto 0.02 X10*3/uL (0.00-0.03); Imm Gran Pct Auto 0.3 % (0.0-0.4); Lymphocytes Absolute Auto 1.6 X10*3/uL (1.2-4.9); Mean Corpuscular HGB Conc 35.5 g/dl (31.0-35.0); Mean Corpuscular Hemoglobin 32.3 pg (27.0-33.0); Mean Corpuscular Volume 91.1 fL (80.0-98.0); Mean Platelet Volume 9.6 fL (9.4-12.3); Monocytes Absolute Auto 0.5 X10*3/uL (0.1-1.2); Monocytes Percent Auto 8.3 % (2-11); Neutrophils Absolute Auto 3.7 x10*3/uL (2.0-8.3); Platelet Count 212 X10*3/uL (160-400); Red Blood Count 4.39 X10*6/uL (4.20-5.50); Red Cell Distribution Width 12.6 % (11.0-16.0); White Blood Count 5.9 X10*3/uL (4.8-10.8)
[2023-12-22 16:09] LABS: Alanine Aminotransferase 12 U/L (0-31); Albumin Level 4.2 g/dL (3.5-5.0); Alkaline Phosphatase 65 U/L (39-117); Anion Gap 12 (12-20); Aspartate Amino Transferase 14 U/L (5-31); Bilirubin Direct 0.3 mg/dL (0.0-0.5); Bilirubin Total 0.9 mg/dL (0.0-1.0); Blood Urea Nitrogen 13 mg/dL (9-16); Calcium 9.6 mg/dL (8.4-10.2); Carbon Dioxide 25 mmol/L (22-29); Chloride 106 mmol/L (96-108); Estimated Glomerular Filt Rate > 60; Glucose Random 104 mg/dL (60-115); Magnesium 1.9 mg/dL (1.6-2.6); Potassium 3.3 mmol/L (3.3-5.1); Sodium 140 mmol/L (135-145); Total Protein 7.5 g/dL (6.5-8.0)
[2023-12-22 16:12] LABS: INTERNATIONAL NORM RATIO 0.9 (0.9-1.1); Prothrombin Time 10.6 SEC (10.9-12.4)
[2023-12-22 16:15] LABS: Partial Thromboplastin Time 29.1 SEC (26.0-36.8)
[2023-12-22 19:53] VITALS: BP 125/84; PULSE 78; RESP 18; O2SAT 98
[2023-12-22 20:02] VITALS: BP 125/84; PULSE 78; RESP 18; TEMP 36.6; O2SAT 98
== END 2023-12-22 20:04 | disposition home or self-care (01) ==
LOC: HO.ED 20:04
PROVIDERS: Physician Assistant; Emergency Provider Emergency Medicine
DX: M79.605 Pain in left leg (principal); R60.0 Localized edema; R05.9 Cough, unspecified; Z79.899 Other long term (current) drug therapy
CPT/HCPCS: 36415; 71046; 80048; 80076; 83735; 85025; 85610; 85730; 93971; 99282; 99284